=== PATIENT | female | born 1995 | race American Indian/Alaskan Native ===

== ENCOUNTER 2016-07-07 22:34 | Emergency (ER) | payer SELFPAY ==
[2016-07-07 22:47] VITALS: BP 153/92
[2016-07-08] MEDS ORDERED: TORADOL IM ONE (02:18)
[2016-07-08] MEDS ORDERED: FLEXERIL PO ONE (02:18)
--- NOTE | 2016-07-08 02:53 | Cat Scan Report ---
FINAL REPORT PROCEDURE: CT HEAD/BRAIN WO CON TECHNIQUE: Computerized tomography of the head was performed without contrast material. HISTORY: head trauma COMPARISON: No prior studies are available for comparison. FINDINGS: Skull and scalp: Normal. Paranasal sinuses: Normal. Ventricles and subarachnoid spaces: Normal. Cerebrum: No evidence of hemorrhage, acute infarction or mass . Cerebellum and brainstem: No evidence of hemorrhage, acute infarction or mass. Vasculature: Normal. Comments: None. IMPRESSION: There is no evidence of an acute intracranial process.
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
== END 2016-07-08 03:22 | disposition home or self-care (01) ==
LOC: ED 22:34
DX: S00.90XA Unspecified superficial injury of unspecified part of head, initial encounter (principal); S06.0X0A Concussion without loss of consciousness, initial encounter; T14.8 Other injury of unspecified body region; F17.200 Nicotine dependence, unspecified, uncomplicated; Y04.8XXA Assault by other bodily force, initial encounter; Y93.89 Activity, other specified; Y92.89 Other specified places as the place of occurrence of the external cause; Y99.0 Civilian activity done for income or pay
CPT/HCPCS: 70450; 81025; 96372; 99284; J1885